=== PATIENT | male | born 2000 | race African-American/Black ===

== ENCOUNTER 2023-12-28 09:12 | Emergency (ER) | payer SELFPAY | END 2023-12-28 11:19 | disposition home or self-care (01) | LOC: JD.ED 09:12 | DX: S62.336A Displaced fracture of neck of fifth metacarpal bone, right hand, initial encounter for closed fracture (principal); F17.210 Nicotine dependence, cigarettes, uncomplicated; Z79.899 Other long term (current) drug therapy; W22.01XA Walked into wall, initial encounter | CPT/HCPCS: 29125; 73130-26-RT; 73130-RT; 99283; 99283-25 ==